=== PATIENT | male | born 1965 | race Caucasian/White ===

== ENCOUNTER 2016-12-23 20:55 | Emergency (ER) | payer OTHER ==
[~2016-12-23] VITALS: Ht 170.2 cm; Wt 69.9 kg
[2016-12-23 22:03] LABS: ADD MIUA? NO; BILIRUBIN NEGATIVE; BLOOD NEGATIVE; COLOR YELLOW ((YELLOW)); GLUCOSE (STRIP) NEGATIVE; KETONES NEGATIVE; LEUKOCYTES NEGATIVE; NITRITE NEGATIVE; PROTEIN (STRIP) NEGATIVE; SPECIFIC GRAVITY 1.012 (1.000-1.030); UROBILINOGEN 0.2 MG/DL (0.2-1.0)
[2016-12-24 02:58] VITALS: BP 144/88
[2016-12-25 13:30] LABS: CHLAMYDIA TRACHOMATIS NEGATIVE; NEISSERIA GONORRHOEAE NEGATIVE
== END 2016-12-24 02:59 | disposition home or self-care (01) ==
LOC: EME 20:55
PROVIDERS: Emergency Medicine
DX: N50.3 Cyst of epididymis (principal); N43.3 Hydrocele, unspecified
CPT/HCPCS: 76870; 81003; 87491; 87591; 99281; 99284